=== PATIENT | female | born 1955 | race Caucasian/White ===

== ENCOUNTER → 2017-05-09 | Outpatient (CLI) | payer OTHER ==
--- NOTE | 2017-05-10 10:58 | MM ---
Reason for exam: screening (asymptomatic). Last mammogram was performed 1 year and 1 month ago. History: Patient is postmenopausal. Took estrogen for 2 years beginning at age 47. Physical Findings: A clinical breast exam by your physician is recommended on an annual basis and results should be correlated with mammographic findings. MG Screening Mammo w CAD Bilateral CC and MLO view(s) were taken. Prior study comparison: April 06, 2016, bilateral MG screening mammo w CAD. August 07, 2014, bilateral MG screening mammo w CAD. There are scattered fibroglandular densities. There is no discrete abnormality. No significant changes when compared with prior studies. ASSESSMENT: Negative, BI-RAD 1 RECOMMENDATION: Routine screening mammogram of both breasts in 1 year.
== END | disposition home or self-care (01) ==
LOC: RADMAMWWP 12:03
PROVIDERS: ATTEND Family Medicine
DX: Z12.31 Encounter for screening mammogram for malignant neoplasm of breast (principal)

== ENCOUNTER → 2020-12-04 | Outpatient (CLI) | payer OTHER ==
--- NOTE | 2020-12-04 11:46 | FL ---
EXAMINATION TYPE: FL barium swallow DATE OF EXAM: 12/04/2020 CLINICAL HISTORY: History of prior multiple hernia repairs now with dysphasia TECHNIQUE: A double contrast esophagram is performed utilizing air and barium. A total of 50 second s of fluoroscopic time was utilized during procedure and 50 images obtained. COMPARISON: 06/17/2015 FINDINGS: The esophagus is markedly tortuous. There is delayed transit of contrast through the esophagus into t he stomach. The gastroesophageal junction appears relatively normally positioned with a portion of th e fundus of the stomach herniated through the hiatus, most consistent with a paraesophageal hernia. IMPRESSION: Findings most concerning for paraesophageal hernia. Stomach is distended. The esophagus is tortuous w ith delayed transit of contrast.
== END | disposition home or self-care (01) ==
LOC: RADUSWWP 10:27
PROVIDERS: ATTEND Surgery Plastic and Reconstructive Surgery
DX: R13.10 Dysphagia, unspecified (principal)
CPT/HCPCS: 74220